=== PATIENT | male | born 1975 | race Caucasian/White ===

== ENCOUNTER 2021-06-01 14:47 | Emergency (ER) | payer OTHER ==
[2021-06-01] MEDS ORDERED: CITRATE OF MAG296 ML PO (17:03)
== END 2021-06-01 17:33 | disposition home or self-care (01) ==
LOC: FER 14:47
DX: K59.00 Constipation, unspecified (principal); E11.9 Type 2 diabetes mellitus without complications; Z79.84 Long term (current) use of oral hypoglycemic drugs
CPT/HCPCS: 74022

== ENCOUNTER 2021-06-02 17:13 | Emergency (ER) | payer OTHER ==
[~2021-06-02 17:13] MED LIST: CITRATE OF MAG296 ML PO
[2021-06-02 18:26] LABS: BASOPHIL 0.5 % (0-2); EOSINOPHIL 1.3 % (0-5); HCT 46.3 % (42.0-52.0); HGB 14.9 g/dl (13.2-18.0); MCH 26.9 pg (25.0-31.0); MCHC 32.2 g/dL (32.0-36.0); MCV 83.7 fL (78.0-100.0); MONOCYTE 13.5 % (0-12); MPV 10.3 fL (6.0-9.5); NEUTROPHIL 70.2 % (41-80); NRBC 0; PLT 252 K/uL (150-400); RBC 5.53 M/uL (4.70-6.00); WBC 14.6 K/uL (4.0-10.5)
[2021-06-02 18:37] LABS: ALBUMIN 4.2 g/dL (3.4-5.0); BILIRUBIN - TOTAL 0.6 mg/dL (0.2-1.0); BUN/CREAT RATIO (CALC) 12.5 RATIO; CREATININE 1.68 mg/dL (0.67-1.17); GLOBULIN (CALCULATION) 4.1 g/dL; TOTAL PROTEIN 8.3 g/dL (6.4-8.2)
== END 2021-06-02 21:25 | disposition left against medical advice (07) ==
LOC: FER 17:13
PROVIDERS: Emergency Medicine
DX: R10.9 Unspecified abdominal pain (principal); R19.7 Diarrhea, unspecified; Z53.8 Procedure and treatment not carried out for other reasons
CPT/HCPCS: 36415; 80053; 83690; 85025

== ENCOUNTER → 2022-02-07 | Day surgery (SDC) | payer OTHER ==
[~2022-02-07] VITALS: Ht 182.9 cm; Wt 104.3 kg
[~2022-02-07] MED LIST changes: +ATENOLOL25 MG PO; +BUSPIRONE HCL15 MG PO; +CYCLOBENZAPRINE10 MG PO; +METFORMIN HCL500 MG PO; +NALTREXONE 50MG50 MG PO; +NAPROXEN500 MG PO; +NEURONTIN300 MG PO; +PRILOSEC20 MG PO; +PROZAC20 MG PO; +TRAZODONE 100M100 MG PO
[2022-02-07 08:55] LABS: BASOPHIL 0.9 % (0-2); HCT 41.4 % (42.0-52.0); HGB 13.5 g/dl (13.2-18.0); MCH 27.2 pg (25.0-31.0); MCHC 32.6 g/dL (32.0-36.0); MCV 83.5 fL (78.0-100.0); MPV 10.7 fL (6.0-9.5); NEUTROPHIL 50.4 % (41-80); NRBC 0; PLT 195 K/uL (150-400); RBC 4.96 M/uL (4.70-6.00); RDW 13.7 % (11.5-14.0); WBC 7.7 K/uL (4.0-10.5)
[2022-02-07 09:10] LABS: INR 1.01 (0.9-1.2); PTT 24.3 SECONDS (24.9-34.6)
[2022-02-07 09:54] LABS: ALBUMIN 3.7 g/dL (3.4-5.0); BILIRUBIN - TOTAL 0.2 mg/dL (0.2-1.0); BUN/CREAT RATIO (CALC) 18.3 RATIO; CREATININE 0.93 mg/dL (0.67-1.17); GLOBULIN (CALCULATION) 3.6 g/dL; POTASSIUM 4.1 mmol/L (3.5-5.1); TOTAL PROTEIN 7.3 g/dL (6.4-8.2)
== END | disposition home or self-care (01) ==
LOC: FAS 07:30
PROVIDERS: Oral & Maxillofacial Surgery
DX: K02.9 Dental caries, unspecified (principal); K01.1 Impacted teeth; E11.9 Type 2 diabetes mellitus without complications; F11.11 Opioid abuse, in remission; F10.21 Alcohol dependence, in remission; I10 Essential (primary) hypertension
CPT/HCPCS: D7140; D7210; D7240; 36415; 80053; 85025; 85610; 85730; 93005; J1100; J1885; J2250; J2405; J2704; J3010; J7120